=== PATIENT | female | born 1960 | race Caucasian/White ===

== ENCOUNTER 2016-08-08 18:08 | Emergency (ER) | payer MEDICAID ==
[~2016-08-08] VITALS: Ht 165.1 cm; Wt 81.8 kg
[2016-08-08] MEDS ORDERED: LIDOCAINE 1%-EPI 1:100K, 20ML SQ ONE (18:30)
[2016-08-08] MEDS ORDERED: LIDOCAINE 1%, 20ML ONE (18:58)
[2016-08-08 19:49] VITALS: BP 145/95
== END 2016-08-08 19:51 | disposition home or self-care (01) ==
LOC: ED 19:45
DX: L03.116 Cellulitis of left lower limb (principal); L02.416 Cutaneous abscess of left lower limb; F12.10 Cannabis abuse, uncomplicated; Z88.6 Allergy status to analgesic agent
CPT/HCPCS: 10060

== ENCOUNTER 2016-08-11 13:06 | Emergency (ER) | payer MEDICAID ==
[~2016-08-11] VITALS: Ht 165.1 cm; Wt 76.7 kg
[2016-08-11 15:02] VITALS: BP 131/76
== END 2016-08-11 15:32 | disposition home or self-care (01) ==
LOC: ED 15:26
DX: L02.416 Cutaneous abscess of left lower limb (principal)
CPT/HCPCS: 99283